=== PATIENT | female | born 1990 | race Caucasian/White ===

== ENCOUNTER 2017-10-14 19:23 | Emergency (ER) | payer SELFPAY ==
[2017-10-14 22:37] VITALS: BP 131/73
== END 2017-10-14 20:58 | disposition left against medical advice (07) ==
LOC: ED 19:23
DX: Z53.21 Procedure and treatment not carried out due to patient leaving prior to being seen by health care provider (principal)

== ENCOUNTER 2017-10-15 19:34 | Emergency (ER) | payer SELFPAY ==
[2017-10-14 22:37] VITALS: BP 131/73
--- NOTE | 2017-10-15 19:57 | ED Physician Documentation ---
Female Urogenital Problems - HISTORIAN Historian: patient - HPI Stated Complaint: Vaginal bleeding Chief Complaint: Female Urogenital Problems Onset: other (2 weeks ) Severity: mild Location of Pain: vaginal pain, other (and post sex bleeding ) Further Comments: yes (states she was treated for STI with previous partner and she now has a new partner and post sex she bleeds bright red blood for up to two weeks. She states she is concerned she is . She also is worried about STI. She denies any vaginal ordor or discharge other than bleeding post sex.) - Vaginal Bleeding Compared to Menstrual Periods: similiar Where was Test Done: clinic (urine) Sexual History: active, pain w/ intercourse Contraceptive: none - Associated Symptoms Urinary Symptoms: denies: discomfort w/ urination, pain w/ urination Discharge: other (blood post sexual activity ). denies: vaginal discharge, odorous discharge, yellowish discharge - ROS CONST: none GI/: denies: nausea CVS/RESP: none EYES/ENT: none - PAST HX Past History: STD Surgeries/Procedures: none Immunizations: UTD Allergies/Adverse Reactions: Allergies Allergy/AdvReac Type Severity Reaction Status Date / Time pineapple Allergy Intermediate Hives Verified 10/15/17 19:54 Home Medications: Ambulatory Orders Medication Instructions Recorded NK [NK] 10/14/17 - SOCIAL HX Smoking History: non-smoker Alcohol Use: none Drug Use: none - FAMILY HX Family History: none - VITAL SIGNS Vital Signs: Vital Signs Temp Pulse Resp BP Pulse Ox 98.6 F 72 16 131/73 96 10/15/17 19:40 10/15/17 19:40 10/15/17 19:40 10/14/17 19:30 10/15/17 19:40 - REVIEWED ASSESSMENTS Nursing Assessment Reviewed: Yes Vitals Reviewed: Yes Female Urogenital Problems - EXAM General Appearance: no acute distress, alert EENT: eye inspection normal Respiratory: no resp. distress, breath sounds nml, respiratory distress CVS: reg rate & rhythm, heart sounds normal, equal pulses Abdomen: soft, non-tender, no organomegaly, no distention, nml bowel sounds Pelvic: speculum exam nml, active bleeding, blood in vaginal vault. No: blood clots in vault, cerv.motion tenderness, cervical dilation Back: non-tender Skin: color nml, no rash, warm,dry Extremities: non-tender, normal range of motion, no evidence of injury, no edema Neuro: oriented X3, CN's nml as tested, motor nml, sensation nml, mood/affect nml, cognition normal Discharge Clincal Impression: Vaginal bleeding Referrals: Primary Doctor,No [Primary Care Provider] - 2 Days Additional Instructions: 1. Refrain from sex until STI testing is returned. 2. Consider not full penetration with sexual intercourse 3. Follow up with PCP next week 4. Return to ER for any concerns Condition: Stable Disposition: 01 HOME, SELF-CARE Decision to Admit: NO Date of Decison to Admit: 10/15/17 Decision Time: 20:24
[2017-10-16 07:05] LABS: APPEARANCE,URINE CLEAR (CLEAR); COLOR,URINE AMBER (YELLOW); OCCULT BLOOD,URINE 2+ (NEGATIVE); PH URINE 5.5 (5.0 - 8.0); URINE HCG NEGATIVE (NEGATIVE); UROBILINOGEN URINE 0.2 Eu (0.2-1.0)
== END 2017-10-15 20:30 | disposition home or self-care (01) ==
LOC: ED 19:34
DX: N93.9 Abnormal uterine and vaginal bleeding, unspecified (principal)
CPT/HCPCS: 81002; 81025; 87491; 87591; 99283